=== PATIENT | female | born 1995 | race Caucasian/White ===

== ENCOUNTER 2023-11-09 11:05 | Emergency (ER) | payer MEDICAID ==
[~2023-11-09] VITALS: Ht 162.6 cm; Wt 90.0 kg
[2023-11-09 11:10] VITALS: TEMP 98
[2023-11-09] MEDS ORDERED: diphenhydrAMINE 50 MG/ML 1 ML VIAL IM ONE (11:30)
[2023-11-09] MEDS ORDERED: dexAMETHasone 10 MG/ML VIAL IM ONE (11:30)
[2023-11-09] MEDS ORDERED: PREDNISONE20 MG PO (11:30)
[2023-11-09] MEDS ORDERED: ATARAX50 MG PO (11:30)
[2023-11-09 11:55] VITALS: BP 109/71; PULSE 91
== END 2023-11-09 11:55 | disposition home or self-care (01) ==
LOC: COL.ER 11:05
DX: T78.40XA Allergy, unspecified, initial encounter (principal)
CPT/HCPCS: J1100; J1200